=== PATIENT | female | born 1985 | race Caucasian/White ===

== ENCOUNTER → 2017-08-07 | Outpatient (CLI) | payer BC | LOC: COL.LAB 12:06 | DX: N76.0 Acute vaginitis (principal) ==

== ENCOUNTER → 2017-08-30 | Outpatient (CLI) | payer BC | LOC: COL.RAD 09:57 | DX: N20.1 Calculus of ureter (principal) ==

== ENCOUNTER → 2018-07-31 | Outpatient (CLI) | payer BC | LOC: COL.VAS 13:49 | DX: S89.91XA Unspecified injury of right lower leg, initial encounter (principal); M79.89 Other specified soft tissue disorders ==

== ENCOUNTER → 2018-08-23 | Outpatient (CLI) | payer BC | LOC: ZCOL.LAB 12:10 | DX: Z01.812 Encounter for preprocedural laboratory examination (principal); Z86.14 Personal history of Methicillin resistant Staphylococcus aureus infection ==

== ENCOUNTER → 2018-09-05 | Outpatient (CLI) | payer BC | LOC: COL.VAS 13:21 | DX: M79.89 Other specified soft tissue disorders (principal) ==

== ENCOUNTER → 2018-12-31 | Outpatient (CLI) | payer BC ==
[2018-12-31 18:00] LABS: BASO % 0.7 % (0.0-2.0); EOS # 0.1 (0.0-0.7); EOS % 1.5 % (0-4.0); GRAN # 3.2 (1.4-6.5); GRAN % 52.8 % (42.2-75.2); HEMATOCRIT 40.3 % (37.0-47.0); HEMOGLOBIN 13.1 g/dl (12.5-16.0); LYMPH # 2.2 (1.2-3.4); LYMPH % 36.3 % (20.0-51.0); MEAN CELL VOLUME 89 fl (80.0-100.0); MEAN CORPUSCULAR HEMOGLOBIN 29 pg (27.0-31.0); MEAN CORPUSCULAR HGB CONC 33 g/dl (33.0-37.0); MEAN PLATELET VOLUME 10.5 fl (7.4-10.4); MONO # 0.5 (0.1-0.6); MONO % 8.5 % (1.7-9.3); PLATELET COUNT 227 K/mm3 (130-400); RED BLOOD COUNT 4.51 M/mm3 (4.10-5.30); REDCELL DISTRIBUTION WIDTH-CV 12.5 % (11.5-14.5)
[2018-12-31 18:06] LABS: ALBUMIN 4.2 gm/dL (3.5-5.0); BILIRUBIN,TOTAL 0.2 mg/dL (0.0-1.0); CALCIUM 9.3 mg/dL (8.4-10.2); CREATININE, serum 0.75 (0.52-1.25); POTASSIUM 4.5 mmol/L (3.4-5.0); TOTAL PROTEIN 7.5 gm/dL (6.4-8.2)
[2018-12-31 18:36] LABS: THYROID STIMULATING HORMONE 1.38 uIU/mL (0.465-4.680)
== END ==
LOC: ZCOL.LAB 16:57
PROVIDERS: Family Medicine
DX: Z83.49 Family history of other endocrine, nutritional and metabolic diseases (principal)

== ENCOUNTER → 2019-04-10 | Outpatient (CLI) | payer BC | LOC: ZCOL.LAB 11:12 | DX: N89.8 Other specified noninflammatory disorders of vagina (principal) ==

== ENCOUNTER → 2020-10-01 | Outpatient (CLI) | payer BC | LOC: COL.RAD 07:02 | DX: R14.0 Abdominal distension (gaseous) (principal); R10.32 Left lower quadrant pain; R11.0 Nausea; Z90.721 Acquired absence of ovaries, unilateral ==

== ENCOUNTER → 2023-06-12 | Outpatient (CLI) | payer BC | LOC: MC.RAD 11:45 | DX: Z12.31 Encounter for screening mammogram for malignant neoplasm of breast (principal) ==